=== PATIENT | female | born 1985 | race Caucasian/White ===

== ENCOUNTER 2016-12-18 04:22 | Emergency (ER) | payer OTHER ==
[~2016-12-18] VITALS: Ht 167.6 cm; Wt 77.1 kg
[~2016-12-18 04:22] MED LIST: ALBUTEROL17 GM INH
== END 2016-12-18 06:09 | disposition home or self-care (01) ==
LOC: SED 04:22
DX: T78.49XA Other allergy, initial encounter (principal); Z90.49 Acquired absence of other specified parts of digestive tract
CPT/HCPCS: 96372; 99282; J1200